=== PATIENT | female | born 1990 | race Caucasian/White ===

== ENCOUNTER 2018-06-14 02:19 | Inpatient (IN) | payer MEDICAID ==
[2018-06-14 03:31] LABS: SQUAMOUS EPITHIAL 9 /hpf (0-5); URINE BACTERIA OCC (<OCC); URINE BILIRUBIN NEGATIVE (NEGATIVE); URINE BLOOD NEGATIVE (NEGATIVE); URINE CLARITY Hazy (Clear); URINE COLOR Yellow (YELLOW); URINE GLUCOSE (UA) NORMAL (Normal); URINE LEUKOCYTE ESTERASE 2+ Leu/uL (Negative); URINE PROTEIN 1+ mg/dL (NEGATIVE); URINE UROBILINOGEN NORMAL mg/dL (0.2-1.0)
[2018-06-14] MEDS ORDERED: Lactated Ringer's 1,000 ML IV ONE (03:58)
[2018-06-14] MEDS ORDERED: ceFAZolin IV 2 gm in Dextrose 2 GM/50 ML BAG IVPB SCH (04:00)
[2018-06-14] MEDS ORDERED: ceFAZolin 2 GM in Sodium Chloride 0.9% 100 ML IVPB STA (04:29)
--- NOTE | 2018-06-14 06:36 | OBHP ---
Datetime: 06/14/2018 06:18 IP Adm Impression: Term, intrauterine ; Intact Membranes IP Admit Plan: Admit to unit; Initiate labor induction protocol Admit Comment, IP Provider: 28 yo female with an IUP at 39.4 weeks and presented with c/o o f low abdominal pain as well as mild discomfort with urination and some constipation. Admits to adequ ate FM and denies LOF, VB or VD. PMHx and PSHx Negative Meds None NKDA Social Hx denies x 3 OB Hx 2 'ss at term and 2 Searly spontaneous miscarriages A/P Term R/O UTI and Dehydration. Drinks little water States that she is suppoused to be induced today NST reactive Will admit for Observation. UA sent Pelvic Type - PN: Adequate Extremities - PN: Normal Abdomen - PN: Normal Back - PN: Normal Breast - PN: Not Done Lungs - PN: Normal Heart - PN: Normal Thyroid - PN: Normal Neurologic - PN: Normal HEENT - PN: Normal General - PN: Normal Presentation-Admit: Vertex FHR - Baseline A Provider: 130 Membranes, Provider: Intact Contraction Comments Provider: Irregular Gestation - Est Wks by US: 39.4 EGA AdmitDate IP: 39.4 Vital Signs Provider: Reviewed IP Chief Complaint: Uterine contractions; Signs/symptoms UTI; Maternal discomfort NICHD Variability Prov Fetus A: Moderate 6-25bpm NICHD Accel Fetus A IP Provider: 10X10 NICHD Decel Fetus A IP Provider: None Dilatation, Provider: 1 Effacement, Provider: 50 Station, Provider: -3 Genitourinary Exam: Normal DTRs - PN: Normal
--- NOTE | 2018-06-14 07:02 | OBADHP ---
Datetime: 06/14/2018 06:34 Admit Comment, IP Provider: 28 yo female with an IUP at 39.4 weeks and presented with c/o o f low abdominal pain as well as mild discomfort with urination and some constipation. Admits to adequ ate FM and denies LOF, VB or VD. PMHx and PSHx Negative Meds None NKDA Social Hx denies x 3 OB Hx 2 'ss at term and 2 Searly spontaneous miscarriages GBS Negative/ Rh Negative and received Rhogam A/P Term UTI and Dehydration. Drinks little water IVH given and one dose of Ancef also given D/W Dr. Sánchez and she request to admit patient for IOL and to give her 50 mg of Cytotec po NST reactive Will admit for Vaginal delivery Admit labs ordered and pt and FOB aware of POC Pelvic Type - PN: Adequate Extremities - PN: Normal Abdomen - PN: Normal Back - PN: Normal Breast - PN: Not Done Lungs - PN: Normal Heart - PN: Normal Thyroid - PN: Normal Neurologic - PN: Normal HEENT - PN: Normal General - PN: Normal Presentation-Admit: Vertex FHR - Baseline A Provider: 120 Membranes, Provider: Intact Contraction Comments Provider: Irregular Gestation - Est Wks by US: 39.4 Vital Signs Provider: Reviewed IP Chief Complaint: Uterine contractions; Signs/symptoms UTI; Maternal discomfort NICHD Variability Prov Fetus A: Moderate 6-25bpm NICHD Accel Fetus A IP Provider: 10X10 FHR Category Provider Fetus A: Category I NICHD Decel Fetus A IP Provider: None Dilatation, Provider: 1 Effacement, Provider: 50 Station, Provider: -3 Genitourinary Exam: Normal DTRs - PN: Normal EGA AdmitDate IP: 39.4 IP Adm Impression: Term, intrauterine ; No Active Labor; Intact Membranes IP Admit Plan: Admit to unit; Initiate labor protocol
[2018-06-14 07:34] LABS: BASO % 0.3 % (0.0-2.0); EOS % 0.5 % (0.0-4.0); HEMOGLOBIN 8.9 g/dL (11.0-16.0); LYMPH # 2.4 K/uL (1.0-4.3); LYMPH % 31.3 % (20.0-40.0); MEAN CELL VOLUME 79.1 fL (81.0-99.0); MEAN CORPUSCULAR HEMOGLOBIN 26.8 pg (27.0-31.0); MEAN CORPUSCULAR HGB CONC 33.9 g/dL (33.0-37.0); MEAN PLATELET VOLUME 11.9 fL (7.2-11.7); MONO # 0.5 K/uL (0.0-0.8); MONO % 6.6 % (0.0-10.0); NEUT # 4.8 K/uL (1.8-7.0); NEUT % 61.3 % (50.0-75.0); NRBC % 0.1 % (0.0-2.0); RBC 3.33 Mil/uL (3.80-5.20); RED CELL DISTRIBUTION WIDTH 15.4 % (11.5-14.5); WHITE BLOOD COUNT 7.8 K/uL (4.8-10.8)
[2018-06-14 07:50] LABS: ALBUMIN 3.4 g/dL (3.5-5.0); BLOOD UREA NITROGEN 9 mg/dL (7-17); CALCIUM 8.6 mg/dl (8.6-10.4); GFR NON-AFRICAN AMERICAN > 60
[2018-06-14 08:09] LABS: ALT/SGPT 10 U/L (9-52); AST/SGOT 28 U/L (14-36)
[2018-06-14] MEDS ORDERED: Fentanyl/Bupivacaine HCl 250 ML EPI ONE (11:01)
[2018-06-14] MEDS ORDERED: Oxytocin 30 UNIT 30 UNITS/500 ML BAG IV SCH (12:15)
--- NOTE | 2018-06-14 12:30 | OBPN ---
Datetime: 06/14/2018 12:08 IP Progress Impression: Normal progression of labor IP Procedures: Artificial ROM; Sterile Vag Exam IP Progress Plan: Continue present management Membranes, Provider: Ruptured Contraction Comments Provider: irregular FHR - Baseline A Provider: 130 Gestation - Est Wks by US: 39w 4d Presentation-Admit: Vertex IP Progress Note Comment: Asked to examine patient Patient received in LDR#1, S/P epidural: no c/o pain/Ctx. (+) AFM Cervical exam - as above. AROM performed - copious amount of clear fluid Assessment: 28 y.o. P2022, 39w 4d, S/P cytotec p.o. x 1; adequate response. AROM as above. Categor y 1 tracing. Clincally stable. Plan: 1) Start pitocin 2) Anticipate vaginal delivery - as per, and D/W, Dr. Sánchez. Vital Signs Provider: Reviewed; Within Normal Limits NICHD Accel Fetus A IP Provider: 15X15 FHR Category Provider Fetus A: Category I NICHD Variability Prov Fetus A: Moderate 6-25bpm Dilatation, Provider: 4 Effacement, Provider: 60 Station, Provider: -3 NICHD Decel Fetus A IP Provider: None
[2018-06-14] MEDS ORDERED: Oxytocin 30 UNIT 30 UNITS/500 ML BAG IV ONE ×2 (12:48→15:58)
--- NOTE | 2018-06-14 15:56 | OBADHP ---
Datetime: 06/14/2018 12:08 Presentation-Admit: Vertex FHR - Baseline A Provider: 130 Membranes, Provider: Ruptured Contraction Comments Provider: irregular Gestation - Est Wks by US: 39w 4d Vital Signs Provider: Reviewed; Within Normal Limits NICHD Variability Prov Fetus A: Moderate 6-25bpm NICHD Accel Fetus A IP Provider: 15X15 FHR Category Provider Fetus A: Category I NICHD Decel Fetus A IP Provider: None Dilatation, Provider: 4 Effacement, Provider: 60 Station, Provider: -3 Datetime: 06/14/2018 06:34 EGA AdmitDate IP: 39.4
--- NOTE | 2018-06-14 15:56 | OBDS ---
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 low HgB 8.9 , low vitamin D +UTI, Anemis 06/14/18 hgB 8.9 Provider Comments: dr ayala private baby deliverd in apex. end clean no com aogar 04/17 LABOR SUMMARY EDC: 06/17/2018 00:00 No. Babies in Womb: 1 Attempted: No Labor Anesthesia: Epidural LABOR INFORMATION Onset of Labor: 06/14/2018 09:00 Complete Dilatation: 06/14/2018 15:11 Cervical Ripening Agents: Cytotec @ 50mcgs PO given as ordered Oxytocin: Augmentation Group B Beta Strep: Negative Antibiotics # of Doses: 1 Steroids Given: None Reason Steroids Not Administered: Not Applicable MEMBRANES Membranes Rupture Method: Artificial Rupture of Membranes: 06/14/2018 12:00 Amniotic Fluid Color: Clear Amniotic Fluid Amount: Moderate STAGES OF LABOR Stage 1 hrs: 6 Stage 1 min: 11 VAGINAL DELIVERY Episiotomy: None Laceration Extension: N/A Laceration Type: None BABY A INFORMATION Born in Route : No : N/A PRESENTATION/POSITION BABY A Presentation: Cephalic Cephalic Presentation: Vertex Vertex Position: Left Occipital Anterior Breech Presentation: N/A INFANT INFORMATION BABY A Gestational Age at Delivery: 39.4 Gestational Status: Term Sex: Female IDENTIFICATION/MEDS BABY A ID Band Number: [id number] Sensor Number: [id number] CORD INFORMATION BABY A Nuchal Cord : Around Neck x1, Loose
[2018-06-14] MEDS ORDERED: Benzocaine/Menthol 20%-0.5% Topical Spray (60 ml) TOP PRN (15:58)
--- NOTE | 2018-06-14 15:59 | OBPN ---
Datetime: 06/14/2018 15:54 IP Progress Impression: Normal progression of labor IP Procedures: Sterile Vag Exam Contraction Comments Provider: irr FHR - Baseline A Provider: 130 IP Progress Note Comment: pt was examined at bed side ve fd/100/0 will start pishing Vital Signs Provider: Reviewed; Within Normal Limits NICHD Accel Fetus A IP Provider: 10X10 FHR Category Provider Fetus A: Category I NICHD Variability Prov Fetus A: Moderate 6-25bpm Dilatation, Provider: 10 Effacement, Provider: 100 Station, Provider: 0
[2018-06-15 08:21] LABS: BASO # 0.1 K/uL (0.0-0.2); BASO % 0.6 % (0.0-2.0); EOS # 0.1 K/uL (0.0-0.7); EOS % 0.8 % (0.0-4.0); HEMOGLOBIN 7.9 g/dL (11.0-16.0); LYMPH # 2.5 K/uL (1.0-4.3); LYMPH % 29.7 % (20.0-40.0); MEAN CELL VOLUME 79.7 fL (81.0-99.0); MEAN CORPUSCULAR HEMOGLOBIN 26.3 pg (27.0-31.0); MEAN PLATELET VOLUME 11.1 fL (7.2-11.7); MONO # 0.6 K/uL (0.0-0.8); MONO % 7.4 % (0.0-10.0); NEUT # 5.2 K/uL (1.8-7.0); NEUT % 61.5 % (50.0-75.0); NRBC % 0.2 % (0.0-2.0); RBC 3.01 Mil/uL (3.80-5.20); RED CELL DISTRIBUTION WIDTH 15.6 % (11.5-14.5); WHITE BLOOD COUNT 8.4 K/uL (4.8-10.8)
[2018-06-15] MEDS: Multiple Vitamins Tab PO SCH (09:27)
[2018-06-15 09:56] VITALS: RESP 18
[2018-06-16 08:31] LABS: BASO # 0.1 K/uL (0.0-0.2); BASO % 0.9 % (0.0-2.0); EOS # 0.1 K/uL (0.0-0.7); EOS % 1.3 % (0.0-4.0); HEMOGLOBIN 9.7 g/dL (11.0-16.0); LYMPH # 2.8 K/uL (1.0-4.3); LYMPH % 33.5 % (20.0-40.0); MEAN CELL VOLUME 80.5 fL (81.0-99.0); MEAN CORPUSCULAR HEMOGLOBIN 26.9 pg (27.0-31.0); MEAN CORPUSCULAR HGB CONC 33.4 g/dL (33.0-37.0); MEAN PLATELET VOLUME 10.7 fL (7.2-11.7); MONO # 0.5 K/uL (0.0-0.8); MONO % 6.3 % (0.0-10.0); NEUT # 4.8 K/uL (1.8-7.0); NRBC % 0.1 % (0.0-2.0); RBC 3.62 Mil/uL (3.80-5.20); RED CELL DISTRIBUTION WIDTH 15.9 % (11.5-14.5); WHITE BLOOD COUNT 8.4 K/uL (4.8-10.8)
[2018-06-16 09:40] VITALS: BP 125/87; PULSE 78; O2SAT 99
[2018-06-16] MEDS: Multiple Vitamins Tab PO SCH (09:40)
[2018-06-16 19:51] VITALS: TEMP 97
--- NOTE | 2018-06-16 20:03 | OBPPN ---
Datetime: 06/15/2018 11:48 PP Pain Prov: Within normal limits PP Nausea Prov: Denies PP Breasts Prov: Not Done PP Heart Prov: Normal PP Lungs Prov: Normal PP Abdomen/Uterus Prov: Normal PP Lochia Prov: Normal PP Vulva/Perineum Prov: Normal PP CVA Tenderness Prov: Normal PP Extremities Prov: Normal PP C/S Incision Prov: Not Applicable PP Progress Prov: Normal PP Comments Phys Exam Prov: FH below umbilicus PP Impression Prov: Normal progression PP Plan Prov: Continue present management PP Progress Note Prov: PPD ! S/P Vaginal delivery without complications Rh Negative as well as baby PP H_H 7.9/24.0 and Asymptomatic Stable and Satisfactory condition and recovery Repeat CBC in AM Advance care Anticipate D/C home in AM IP PP Procedures: None Vital Signs Provider PP: Reviewed
--- NOTE | 2018-06-16 21:30 | OBPPN ---
Datetime: 06/16/2018 16:30 PP Pain Prov: Within normal limits PP Nausea Prov: Denies PP Breasts Prov: Not Done PP Heart Prov: Normal PP Lungs Prov: Normal PP Abdomen/Uterus Prov: Normal PP Lochia Prov: Normal PP Vulva/Perineum Prov: Normal PP CVA Tenderness Prov: Normal PP Extremities Prov: Normal PP C/S Incision Prov: Not Applicable PP Progress Prov: Normal PP Comments Phys Exam Prov: FH below Umbilicus and non-tender PP Impression Prov: Normal progression PP Plan Prov: Discharge PP Progress Note Prov: PPD # 2 + acute anemia and asymptomatic Rx for Fe BID and advised to take Colace 100 mg po BID Counseled to increase po water intake Pt and baby Rh Negative Stable and Satisfactory condition and recovery Will D/c home with instructions and Rx for Motrin Will follow up with Dr. Sánchez in 4-6 weeks or prn IP PP Procedures: None Vital Signs Provider PP: Reviewed; Within Normal Limits
--- NOTE | 2018-06-16 21:33 | OBDCSUM ---
Datetime: 06/16/2018 13:59 Discharged to, Provider: Home Follow up at, Provider: Dr. Sánchez Disch Instr Activity: Normal activity Disch Instr Diet: Regular Discharge Instructions, Provider: Routine instructions given Discharge Diagnosis, Provider: Term Delivered Discharge Time: 06/16/2018 13:59 Follow up in weeks, Provider: 07/25/2018 Disch Referrals: None Contraception discussed, Prov: Yes Disch Activity Restrictions: No exercising; No lifting; No driving; Minimize walking; Minimize stair -climbing; No sexual activity; Nothing in vagina - [place], tampons, douche Discharge Comment, Provider: PPD # 2 + acute anemia and asymptomatic Rx for Fe BID and advised to take Colace 100 mg po BID Counseled to increase po water intake Pt and baby Rh Negative Stable and Satisfactory condition and recovery Will D/c home with instructions and Rx for Motrin Will follow up with Dr. Sánchez in 4-6 weeks or prn Discharge Diagnosis Prov Other: Acute anemia Contraception after Delivery: Undecided
== END 2018-06-16 15:40 | disposition home or self-care (01) | DRG 560 ==
LOC: C.EROB 02:19 → C.4D 06:20 → C.4M 17:07
PROVIDERS: ADMIT Obstetrics & Gynecology; ATTEND Obstetrics & Gynecology
PROC: 10E0XZZ Delivery of Products of Conception, External Approach (ICD-10-PCS; principal; 2018-06-14)
PROC: 3E0P7VZ Introduction of Hormone into Female Reproductive, Via Natural or Artificial Opening (ICD-10-PCS; 2018-06-14)
PROC: 10907ZC Drainage of Amniotic Fluid, Therapeutic from Products of Conception, Via Natural or Artificial Opening (ICD-10-PCS; 2018-06-14)
DX: O75.3 Other infection during labor (principal); N39.0 Urinary tract infection, site not specified; O99.02 Anemia complicating childbirth; D64.9 Anemia, unspecified; O69.81X0 Labor and delivery complicated by cord around neck, without compression, not applicable or unspecified; Z3A.39 39 weeks gestation of pregnancy; Z37.0 Single live birth